=== PATIENT | female | born 1995 | race Caucasian/White ===

== ENCOUNTER → 2019-11-20 10:36 | Outpatient (BNVA) | payer SELFPAY | PROVIDERS: Visit Provider Family Medicine | DX: S60.211A Contusion of right wrist, initial encounter (principal); X58.XXXA Exposure to other specified factors, initial encounter | CPT/HCPCS: 73110 ==

== ENCOUNTER 2020-03-02 21:29 | Emergency (ER) | payer SELFPAY ==
[2020-03-02 22:07] VITALS: BP 130/77; PULSE 71; RESP 16; TEMP 36.9; O2SAT 99; BMI 46.7
[2020-03-02 22:23] LABS: Basophils % 0.4 %; Eosinophils # 0.1 10^3/uL (0.0-0.8); Eosinophils % 1.6 %; Hematocrit 38.4 % (37.0-47.0); Hemoglobin 11.9 g/dL (11.5-15.3); Lymphocytes # 2.6 10^3/uL (0.8-4.8); Lymphocytes % 29.2 %; Mean Corpuscular Hemoglobin 26.7 pg (28.0-34.0); Mean Corpuscular Volume 86.3 fL (81-99); Mean Platelet Volume 9.8 fL (7.4-10.4); Monocytes # 0.7 10^3/uL (0.2-0.9); Monocytes % 7.5 %; Neutrophils # 5.5 10^3/uL (1.8-7.7); Nucleated Red Blood Cells % 0 %; Platelet Count 311 10^3/cmm (130-400); Red Blood Count 4.45 10^6/uL (4.1-5.3); Red Cell Distribution Width 13.2 % (12.1-15.1); White Blood Count 8.9 10^3/uL (4.0-10.0)
--- NOTE | 2020-03-02 22:29 | W.ED.FEMALGU ---
HPI - Female Genitourinary General: Chief complaint: Vaginal Bleeding Stated complaint: large blood clots with period Time Seen by Provider: 03/02/20 22:26 Source: patient Mode of arrival: ambulatory Limitations: no limitations History of Present Illness: HPI Narrative: 24-year-old female who states she has a history of heavy periods and started her period today. She states that she is passed 2 clots and has had abdominal cramping. She denies any worsening or improving factors. She denies any lightheadedness. She does not believe that she is . Associated symptoms: Deny abdominal pain, headache(s) or nausea Date of Last Menstrual Period: 03/02/20 Review of Systems Const: Denies: fever(s), chills, body aches or change in appetite Eyes: Denies: blurry vision or eye discomfort ENMT: Denies: throat pain or dental pain Card: Denies: chest pain Resp: Denies: dyspnea GI: Denies: abdominal pain, nausea, vomiting or diarrhea : Reports: vaginal bleeding Musc: Denies: neck pain or back pain Skin/Breast: Denies: rash Neuro: Denies: headache(s) Psych: Denies: depression Celso/Lymph: Denies: easy bruising All/Imm: Denies: urticaria PFSH ED PFSH: Social History (Updated 11/20/19 @ 10:07 by Jeanie Chatterjee LPN) Smoking and tobacco status: never smoked Alcohol intake: never Female Reproductive History: Date of last menstrual period: 03/02/20 Physical Exam Const: COMMON NORMALS: no acute distress, patient oriented x3 and healthy appearing HENMT: COMMON NORMALS: normocephalic and atraumatic HEAD & SCALP: normocephalic and atraumatic Eye: COMMON NORMALS: Equal, round and reactive pupils present and EOMs intact bilaterally PUPIL: Yes Equal, round and reactive pupils present Neck/C-Spine: COMMON NORMALS: full ROM and supple Chest: COMMONS NORMALS: normal inspection of the chest and normal palpation of entire chest wall Resp: COMMON NORMALS: normal respiratory effort, No retractions, No use of accessory muscles and clear to auscultation bilaterally AUSCULTATION: clear to auscultation bilaterally Cardio: COMMON NORMALS: regular rate, regular rhythm and No murmurs present (Cardio) RATE: regular rate RHYTHM: regular rhythm GI: COMMON NORMALS: Normal to inspection, nondistended, normoactive bowel sounds present, Soft to palpation, non-tender and no masses PALPATION: Yes Soft to palpation Extremity: COMMON NORMALS: normal to inspection and full ROM Neuro: COMMON NORMALS: patient oriented x3, moves all extremities and no focal motor deficits Psych: COMMON NORMALS: mental status grossly normal, Normal thought process present and cooperative THOUGHT PROCESS: Normal thought process present Skin: COMMON NORMALS: no rashes or lesions noted and no wounds GENERAL SKIN EXAM: no rashes or lesions noted Course Vital Signs: Vital signs: Vital Signs Temperature 98.4 F 03/02/20 22:07 Pulse Rate 71 03/02/20 22:07 Respiratory Rate 16 03/02/20 22:07 Blood Pressure 130/77 03/02/20 22:07 Pulse Oximetry 99 03/02/20 22:07 MDM - Female MDM Narrative: Medical decision making narrative: Mary presents here with vaginal bleeding that is likely heavy menstruation. Her hemoglobin here is normal and she is not . She has no pain at this time. Patient is stable for discharge and is to follow-up with her primary care doctor in 3 to 5 days return to the ER if worsening. She understands agrees to plan. Lab Data: Labs: Lab Results 03/02/20 03/02/20 Range/Units 22:00 22:00 WBC 8.9 (4.0-10.0) 10^3/ uL RBC 4.45 (4.1-5.3) 10^6/u L Hgb 11.9 (11.5-15.3) g/dL Hct 38.4 (37.0-47.0) % MCV 86.3 (81-99) fL MCH 26.7 L (28.0-34.0) pg MCHC 31.0 (30.0-36.0) g/dL RDW 13.2 (12.1-15.1) % Plt Count 311 (130-400) 10^3/c mm MPV 9.8 (7.4-10.4) fL Neut % (Auto) 61.0 % Lymph % (Auto) 29.2 % Frio % (Auto) 7.5 % Eos % (Auto) 1.6 % Baso % (Auto) 0.4 % Neut # (Auto) 5.5 (1.8-7.7) 10^3/u L Lymph # (Auto) 2.6 (0.8-4.8) 10^3/u L Frio # (Auto) 0.7 (0.2-0.9) 10^3/u L Eos # (Auto) 0.1 (0.0-0.8) 10^3/u L Baso # (Auto) 0.0 (0.0-0.1) 10^3/u L Nucleated RBC % (a uto) 0 % Nucleated RBCs # 0.0 /100WBC HCG, Qual Negative (Negative) Discharge Plan Discharge Patient Disposition: Home, Self-Care Clinical Impression: Vaginal bleeding Condition: Stable Prescriptions: No Action No Known Home Medications RF: 0 Discharge Orders: Discharge Order (Routine); Ordered 03/02/20 Ordered By: Jackie David Discharge Diet: Advance as tolerated Discharge Activity: Resume usual activity Patient Instructions: Menstruation (ED) Coding Level of Care Code ED Wet And Dry Sugar Bin Operator for Ana Fwd Exam Comprehensive
[2020-03-02 22:50] LABS: HCG, Serum Qual Negative (Negative)
[2020-03-02] MEDS: ketorolac 60 mg/2 mL INJ IM (23:16)
[2020-03-02 23:18] VITALS: BP 142/91; PULSE 63; RESP 16; O2SAT 99
== END 2020-03-02 23:20 | disposition home or self-care (01) ==
PROVIDERS: Emergency Provider Emergency Medicine
DX: N93.9 Abnormal uterine and vaginal bleeding, unspecified (principal)
CPT/HCPCS: 12345; 84703; 85025; 96372; 96374; 99281; 99283; J1885

== ENCOUNTER → 2020-11-25 13:49 | Outpatient (BNVA) | payer SELFPAY | PROVIDERS: Visit Provider Nurse Practitioner | DX: J02.9 Acute pharyngitis, unspecified (principal); J02.0 Streptococcal pharyngitis | CPT/HCPCS: 87880 ==

== ENCOUNTER → 2020-12-24 11:37 | Outpatient (BNVA) | payer SELFPAY | PROVIDERS: Visit Provider Nurse Practitioner | DX: N92.6 Irregular menstruation, unspecified (principal); O24.919 Unspecified diabetes mellitus in pregnancy, unspecified trimester | CPT/HCPCS: 81025; 85025 ==

== ENCOUNTER → 2020-12-30 13:35 | Outpatient (BNVA) | payer MEDICAID, SELFPAY | PROVIDERS: Visit Provider Obstetrics & Gynecology | DX: N92.6 Irregular menstruation, unspecified (principal); O24.919 Unspecified diabetes mellitus in pregnancy, unspecified trimester | CPT/HCPCS: 83036; 83525; 84443 ==

== ENCOUNTER → 2021-01-09 08:40 | Outpatient (BNVA) | payer MEDICAID, SELFPAY | PROVIDERS: Visit Provider Obstetrics & Gynecology | DX: N92.6 Irregular menstruation, unspecified (principal); N83.202 Unspecified ovarian cyst, left side | CPT/HCPCS: 76830 ==

== ENCOUNTER → 2021-06-17 12:13 | Outpatient (BNVA) | payer MEDICAID, SELFPAY | PROVIDERS: Visit Provider Nurse Practitioner Family | DX: Z20.822 Contact with and (suspected) exposure to COVID-19 (principal); J06.9 Acute upper respiratory infection, unspecified | CPT/HCPCS: 87426; 87635 ==

== ENCOUNTER → 2021-08-04 09:30 | Outpatient (BNVA) | payer MEDICAID, SELFPAY | PROVIDERS: Visit Provider Obstetrics & Gynecology | DX: Z30.9 Encounter for contraceptive management, unspecified (principal) | CPT/HCPCS: 81025 ==

== ENCOUNTER 2022-04-21 06:42 | Outpatient (CLI) | payer MEDICAID, SELFPAY ==
--- NOTE | 2022-04-21 07:00 | US_ITS ---
WS: [id number] TRANSABDOMINAL PELVIC AND TRANSVAGINAL PELVIC ULTRASOUND HISTORY: N93.9 - Abnormal uterine and vaginal bleeding, unspecified COMPARISON: 01/09/2021 Uterus: 7.8 cm x 4.8 cm x 4.2 cm. Normal size anteverted uterus. No fibroid or mass. Endometrium: 0.5 cm. Normal size and homogeneity. Normal vascularity. IUD is present but incompletely visualized. It does appear to be in normal position. Right ovary: 2.9 cm x 2.2 cm x 1.7 cm. Normal size and vascularity. No mass. Small follicles. Largest follicle measures 1.4 x 1.2 x 1.5 cm. Left ovary: 2.4 cm x 1.6 cm x 1.5 cm. Normal size and vascularity. No mass. Small follicles. No free fluid. US/US pelvic with transvaginal IMPRESSION: 1. IUD in satisfactory position. 2. No ovarian mass or cyst.
== END 2022-04-21 06:43 | disposition home or self-care (01) ==
PROVIDERS: Visit Provider Obstetrics & Gynecology
DX: N93.9 Abnormal uterine and vaginal bleeding, unspecified (principal); Z97.5 Presence of (intrauterine) contraceptive device
CPT/HCPCS: 76830; 76856

== ENCOUNTER → 2022-07-30 11:16 | Outpatient (BNVA) | payer MEDICAID, SELFPAY | PROVIDERS: Visit Provider Obstetrics & Gynecology | DX: N92.1 Excessive and frequent menstruation with irregular cycle (principal); Z97.5 Presence of (intrauterine) contraceptive device | CPT/HCPCS: 87070; 87205 ==

== ENCOUNTER 2022-10-23 14:11 | Emergency (ER) | payer MEDICAID, SELFPAY ==
--- NOTE | 2022-10-23 14:15 | XR_ITS ---
WS: [id number] Exam: XR foot LT min 3V* [id number] Date/Time of Exam: 10/23/2022 2:15 PM Reason For Exam: injury Findings: The foot was examined in multiple views and reveals no fractures or displacements of bone. No bony a nomalies are noted. The bony elements are in adequate alignment. The joint spaces are smooth and eq uidistant. XR/XR foot LT min 3V* [id number] IMPRESSION: Negative left foot.
[2022-10-23 14:23] VITALS: BP 150/87; PULSE 63; RESP 16; TEMP 36.6; O2SAT 98
[2022-10-23 17:04] VITALS: BP 148/97; PULSE 70; RESP 18; TEMP 36.7
--- NOTE | 2022-10-23 17:05 | ED_ITS ---
HPI - Extremity Problem General: Chief complaint: Extremity Injury, Lower Stated complaint: left foot injury Time Seen by Provider: 10/23/22 17:04 History of Present Illness: 27-year-old female comes in today with injury to the left foot. Patient reports that she dropped the corner of a bookshelf onto her left foot when moving it. Patient has pain and tenderness with walking. Patient appears nontoxic. Review of Systems Musc: Reports: extremity pain [facility] ED PFSH: Medical History History of strep pharyngitis Surgical History History of ankle surgery Family History Father Heart disease Denies family history of Colon cancer Ovarian cancer Diabetes Hypercholesteremia Breast cancer Hypertension Uterine cancer Thyroid disease Stroke Social History Smoking and tobacco status: never smoked Female Reproductive History: Date of last menstrual period: 03/02/20 Physical Exam Const: COMMON NORMALS: alert HENMT: COMMON NORMALS: normocephalic HEAD & SCALP: normocephalic Neck/C-Spine: COMMON NORMALS: full ROM Resp: COMMON NORMALS: normal respiratory effort Cardio: COMMON NORMALS: regular rate RATE: regular rate Back/Pelvis: COMMON NORMALS: thoracic and lumbar spine normal to inspection Extremity: LEFT LOWER EXTREMITY: Yes foot & digits (Dorsal foot has a superficial abrasion with some swelling and ecchymosis) Left foot and digits: Yes inspection, Yes palpation and Yes ROM Neuro: SENSORIUM/ORIENTATION: Yes alert Skin: TRAUMA: abrasion (Small superficial abrasion dorsal left foot) Course Vital Signs: Vital signs: Vital Signs Temperature 98.0 F 10/23/22 17:04 Pulse Rate 70 10/23/22 17:04 Respiratory Rate 18 10/23/22 17:04 Blood Pressure 148/97 10/23/22 17:04 Pulse Oximetry 98 10/23/22 14:23 Oxygen Delivery Me thod 10/23/22 17:04 MDM - Extremity (Nontraumatic) Medical Decision Making Patient comes in today for injury to left foot. On exam we note a small superficial abrasion with some surrounding swelling and mild ecchymosis to the dorsal of the left foot. Differential diagnosis includes fracture, sprain, contusion. X-ray notes no fracture. Believe patient probably has a contusion recommend activity as tolerated and ice packs. Patient reported understanding and agreed to plan. Lab Data Radiology Impressions Foot X-Ray 10/23/22 14:15 IMPRESSION: Negative left foot. Discharge Plan Discharge Patient Disposition: Home Clinical Impression: Contusion of foot, left Qualifiers: Encounter type: initial encounter Qualified Code(s): S90.32XA - Contusion of left foot, initial encounter Condition: Stable Prescriptions: No Action amoxicillin 875 mg tablet 875 mg PO BID Qty: 20 0RF Xulane 150-35 mcg/24 hr patch weekly 1 patch transdermal Q7D Qty: 3 4RF Rx Instructions: apply once weekly for 3 weeks of a 4-week cycle Discharge Orders: Discharge ED (Routine); Ordered 10/23/22 Ordered By: Tyler Ramos Patient Instructions: Foot Contusion (ED) Activity Restrictions/Additional Instructions: Home and rest. Activity as tolerated. Ice as needed for pain. Use acetaminophen and ibuprofen for further pain. Follow-up with primary care as needed. Return to ED for new concerns. Coding Level of Care Code ED Director Call Center Sales for Ana Zamora
[2022-10-23 17:19] VITALS: BP 148/97; PULSE 70; RESP 18; TEMP 36.7
== END 2022-10-23 17:24 | disposition home or self-care (01) ==
PROVIDERS: Emergency Provider Nurse Practitioner Family
DX: S90.32XA Contusion of left foot, initial encounter (principal); W20.8XXA Other cause of strike by thrown, projected or falling object, initial encounter
CPT/HCPCS: 73630; 99283

== ENCOUNTER 2022-11-08 10:02 | Emergency (ER) | payer MEDICAID, SELFPAY ==
[2022-11-08 10:15] VITALS: BMI 48.5
[2022-11-08 10:19] VITALS: BP 149/100; PULSE 73; RESP 18; TEMP 36.7; O2SAT 95
--- NOTE | 2022-11-08 10:22 | XRR_ITS ---
PROCEDURE INFORMATION: Exam: XR Right Knee Exam date and time: 11/08/2022 10:49 AM Age: 27 years old Clinical indication: Right knee pain TECHNIQUE: Imaging protocol: Radiologic exam of the Right knee. Views: 3 views. COMPARISON: No relevant prior studies available. FINDINGS: Bones/joints: Large knee joint effusion. No significant degenerative changes. No acute fracture is identified. No chondrocalcinosis is seen. Soft tissues: The extensor mechanism is overall intact. XR/XR knee RT 3V* [id number] IMPRESSION: 1. No acute fracture is identified. 2. Large knee joint effusion. 3. Consider MRI to further assess if clinically warranted.
--- NOTE | 2022-11-08 10:22 | W.ED.EXTPRO ---
HPI - Extremity Problem General: Chief complaint: Extremity Injury, Lower Stated complaint: Fall, R leg/Knee pain Time Seen by Provider: 11/08/22 10:03 Source: patient Mode of arrival: ambulatory Limitations: no limitations History of Present Illness: 27-year-old female presents the ER today for right knee pain that began this morning. Patient reports she was walking on a flat surface when she felt a sudden pop in the right leg. Patient reports that almost took her to the ground immediately. She reports she has been having severe pain since with weightbearing. She denies any swelling. Denies any prior injury to that knee however has had right ankle surgery. Patient reports there is severe pain in the front lateral aspect of the knee with ambulation. Review of Systems General: Reports: 10 or more systems reviewed and unremarkable except in HPI and below PFSH ED PFSH: Medical History History of strep pharyngitis Surgical History History of ankle surgery Family History Father Heart disease Denies family history of Colon cancer Ovarian cancer Diabetes Hypercholesteremia Breast cancer Hypertension Uterine cancer Thyroid disease Stroke Social History Smoking and tobacco status: never smoked Female Reproductive History: Date of last menstrual period: 03/02/20 Physical Exam Const: COMMON NORMALS: no acute distress, patient oriented x3, no limitations, healthy appearing, alert and well nourished; negative for average body habitus (Obese) Resp: COMMON NORMALS: normal respiratory effort EFFORT & INSPECTION: Yes able to speak in complete sentences Cardio: COMMON NORMALS: regular rate and regular rhythm RATE: regular rate RHYTHM: regular rhythm Extremity: NARRATIVE EXTREMITY EXAM: Patient is mildly tender to palpation in the superior lateral aspect of the tibia/fibula/lower part of the knee. No obvious swelling. Ligments appear stable with anterior and posterior drawer. Neuro: COMMON NORMALS: patient oriented x3 SENSORIUM/ORIENTATION: Yes alert Psych: COMMON NORMALS: mental status grossly normal, Normal thought process present and cooperative THOUGHT PROCESS: Normal thought process present Skin: COMMON NORMALS: no rashes or lesions noted and no wounds GENERAL SKIN EXAM: no rashes or lesions noted Course ED course: Patient presents with right knee pain that occurred while walking on a flat surface this morning. No obvious swelling or abnormalities noted on exam other than some mild tenderness. We will get an x-ray at this time. Vital Signs: Vital signs: Vital Signs Temperature 98.0 F 11/08/22 10:19 Pulse Rate 73 11/08/22 10:19 Respiratory Rate 18 11/08/22 10:19 Blood Pressure 149/100 11/08/22 10:19 Pulse Oximetry 95 11/08/22 10:19 Oxygen Delivery Me thod 11/08/22 10:19 MDM - Extremity (Nontraumatic) Medical Decision Making X-ray indicates no acute fracture however large knee joint effusion is noted. Patient reports no prior injury or problems with this knee so I am suspicious of a tendon or ligament injury. We will place patient in a knee brace and also on crutches. I recommended she stay off of her knee until follow-up with Ortho. A case management referral to Ortho has been placed. We will also send patient home with diclofenac to take for the next 10 days. Rest, ice, elevation recommended. Return to the ER with any new or worsening symptoms. Patient verbalized understanding and was in agreement with the treatment plan. Lab Data Radiology Impressions Knee X-Ray 11/08/22 10:22 IMPRESSION: 1. No acute fracture is identified. 2. Large knee joint effusion. 3. Consider MRI to further assess if clinically warranted. Critical Care Time Critical Care Time: Critical Care Time: No Discharge Plan Discharge Patient Disposition: Home Clinical Impression: Acute pain of right knee Condition: Stable Prescriptions: New diclofenac sodium 50 mg tablet,delayed release (DR/EC) 50 mg PO Q12H PRN (Reason: pain) 10 Days Qty: 20 0RF No Action amoxicillin 875 mg tablet 875 mg PO BID Qty: 20 0RF Xulane 150-35 mcg/24 hr patch weekly 1 patch transdermal Q7D Qty: 3 4RF Rx Instructions: apply once weekly for 3 weeks of a 4-week cycle Discharge Orders: Discharge ED (Routine); Ordered 11/08/22 Ordered By: Nicci Molina Discharge Diet: Usual diet Discharge Activity: Limit activity as instructed Patient Instructions: Opioid Safety, Pain Management Activity Restrictions/Additional Instructions: Wear knee brace as placed in the ER. Use crutches as discussed. Rest, ice, elevation recommended. Take diclofenac as prescribed. Ice 20 minutes on and 20 minutes off 3-4 times daily. Follow-up with Ortho as discussed. Return to the ER with new or worsening symptoms. Coding Level of Care Code ED Laborer [employer] for Ana Zamora
--- NOTE | 2022-11-08 11:47 | PC.NURSE ---
PT HAD RIGHT KNEE IMMOBILIZER PLACED PER PROVIDER PABLO VO WITH CRUTCHES AND EDUCATION WITH USE. PT RETURNED DEMONSTRATION. PT HAS A +2 RIGHT PEDAL PULSE WITH CAP REFILL LESS THAN 3 SECONDS. PT DENIES ANY LOSS OF SENSATION OR FUNCTION.
[2022-11-08 11:50] VITALS: BP 152/85; PULSE 86; RESP 16; O2SAT 99
--- NOTE | 2022-11-09 09:19 | DCPLANNER ---
Addendum entered by Anabella Peck 11/11/22 12:56: Patient had a follow up appointment scheduled with ortho for 11.09.[address] Reza at ortho - patient did attend appointment. Original Note: Case manger had message to schedule a follow up appointment for patient with ortho. gas manager sent patients information to the front office staff at ortho. Patients information will be printed and reviewed. Clinic will call patient with appointment information.
== END 2022-11-08 11:51 | disposition home or self-care (01) ==
PROVIDERS: Emergency Provider Physician Assistant
DX: M25.561 Pain in right knee (principal)
CPT/HCPCS: 29530; 73562; 99283; E0114

== ENCOUNTER → 2022-11-09 09:39 | Outpatient (BNVA) | payer MEDICAID, SELFPAY | PROVIDERS: Visit Provider Specialist | DX: S89.91XA Unspecified injury of right lower leg, initial encounter (principal); S83.206A Unspecified tear of unspecified meniscus, current injury, right knee, initial encounter; X58.XXXA Exposure to other specified factors, initial encounter; E66.01 Morbid (severe) obesity due to excess calories; Z68.42 Body mass index [BMI] 45.0-49.9, adult | CPT/HCPCS: 73560; 73565 ==

== ENCOUNTER 2022-11-09 14:42 | Outpatient (CLI) | payer MEDICAID, SELFPAY | END 2022-11-09 14:43 | disposition home or self-care (01) | LOC: SPT 14:43 | PROVIDERS: Visit Provider Specialist | DX: Z46.89 Encounter for fitting and adjustment of other specified devices (principal); M25.561 Pain in right knee | CPT/HCPCS: 97760; L1812 ==

== ENCOUNTER → 2022-11-12 11:00 | Outpatient (BNVA) | payer MEDICAID, SELFPAY | PROVIDERS: Visit Provider Obstetrics & Gynecology | DX: Z01.419 Encounter for gynecological examination (general) (routine) without abnormal findings (principal); E66.9 Obesity, unspecified | CPT/HCPCS: 83036; 83525; 84443; 87624 ==

== ENCOUNTER 2022-12-09 07:08 | Outpatient (CLI) | payer MEDICAID, SELFPAY ==
--- NOTE | 2022-12-09 07:15 | MR_ITS ---
WS: [id number] MRI RIGHT KNEE NONCONTRAST TECHNIQUE: Axial PD, coronal PD fat sat, coronal PD, sagittal PD, and sagittal PD fat-sat images obta ined. CLINICAL INFORMATION: Positive Bharath's sign COMPARISON: None. FINDINGS: Distal quadriceps and patella tendons are intact. ACL is nonvisualized compatible with high-grade tea r. No normal fibers visualized. Normal PCL. Small joint effusion. Mild chronic thinning of the medial and lateral meniscus. No acute appearing me niscal tears. Medial and lateral collateral ligaments appear intact. Normal popliteus. Normal patella . Normal patella cartilage. No subchondral edema. Normal fibula head. MR/MR knee RT wo con* [id number] IMPRESSION: 1. High-grade complete tear of the ACL. No normal fibers visualized. 2. Normal PCL. 3. No acute appearing meniscal tears. 4. Small suprapatellar effusion. 5. Medial and lateral collateral ligaments appear intact. 6. No other acute findings. Outbridge grading:
== END 2022-12-09 07:09 | disposition home or self-care (01) ==
LOC: RAD 07:10
PROVIDERS: Visit Provider Specialist
DX: S83.511A Sprain of anterior cruciate ligament of right knee, initial encounter (principal); X58.XXXA Exposure to other specified factors, initial encounter; M25.461 Effusion, right knee
CPT/HCPCS: 73721

== ENCOUNTER 2023-02-04 05:37 | Day surgery (SDC) | payer MEDICAID, SELFPAY ==
[2023-02-03 09:19] VITALS: BMI 49.2
[2023-02-04] VITALS (14 sets, daily range): BP systolic 148–190; BP diastolic 66–108; PULSE 68–97; RESP 16–18; TEMP 36.1–36.6; O2SAT 90–99
[2023-02-04] MEDS: sodium chloride 0.9% 1,000 ML 30 ML IV (06:15)
[2023-02-04] MEDS: oxyCODONE 20 mg ER (12 HR) Tablet PO (06:16)
[2023-02-04] MEDS: gabapentin 300 mg Capsule PO (06:16)
[2023-02-04] MEDS: acetaminophen 500 mg Tablet 1000 MG PO (06:17)
[2023-02-04] MEDS: CELEcoxib 200 mg Capsule 400 MG PO (06:17)
--- NOTE | 2023-02-04 07:01 | W.PM.OPSFHP ---
Same Day Surgery H&P Indication for Procedure/HPI DATE OF PROCEDURE: February 04, 2023 CHIEF COMPLAINT/INDICATIONFOR SURGICAL PROCEDURE: Anterior cruciate ligament deficiency right knee PREOP DIAGNOSIS: Anterior cruciate ligament tear right knee, hamstring autograft PLANNED PROCEDURE: Operation Date: 02/04/23 07:00 Proposed Procedures p arthroscopic right ACL reconstruction/ 99158,S83.511A(Right) - Jerald Wetzel MD The patient is a 27-year-old who injured her right knee on 10/30/2022 when her knee popped and gave way with immediate pain and swelling she has had continued pain and instability. An MRI scan on 12/09/2022 revealed a complete tear of her anterior cruciate ligament. She is here for elective anterior cruciate ligament reconstruction Medications/Allergies* Home Medications Medication Instructions Recorded Confirmed Type No Known Home Medications 12/15/22 02/03/23 History Allergies/Adverse Reactions Allergy/AdvReac Type Severity Reaction Status Date / Time No Known Allergies Allergy Verified 12/15/22 08:25 Current Medications: Generic Name Dose Route Start Last Admin Trade Name Freq PRN Reason Stop Dose Admin Sodium Chloride 1,000 mls @ 30 mls/hr 02/04/23 06:00 02/04/23 06:15 Sodium Chloride 0.9% IV 02/05/23 05:59 30 mls/hr .Q24H JUAN Administration Pertinent History/Comorbid Conditions* Medical History (Updated 11/16/22 @ 00:14 by KARLA Chandler) History of strep pharyngitis Surgical History (Updated 08/04/21 @ 13:40 by Bindu Dewitt MD) History of ankle surgery Family History (Updated 08/04/21 @ 09:34 by Stella Frank) Heart disease Father Denies family history of Colon cancer Ovarian cancer Diabetes Hypercholesteremia Breast cancer Hypertension Uterine cancer Thyroid disease Stroke Social History Smoking and tobacco status: never smoked Substance/Drug Use: never Pertinent Exam Findings alert, oriented x 3, clear to auscultation bilaterally, regular rate & rhythm and operative site marked KNEE [right] No tenderness No effusion RANGE OF MOTION: ? ? ? EXAMINED LIMB ? Extention: Full extent ? Flexion: 130 degrees Patella tracks well She has a larger leg but appears to have a soft endpoint on Swetha exam of the right knee compared to the left He will not relax for pivot shift. Negative posterior drawer bilaterally No posterior lateral instability MOTOR: Strong quadriceps hamstrings tibialis anterior and extensor houses longus strength SENSATION: Intact to light touch Recommendations Surgery/Procedure today Coding Level of Care Code Acute Code for Chg Fwd Diagnoses
[2023-02-04] MEDS: ceFAZolin 2,000 MG in sodium chloride 0.9% (plus) 50 ML 100 MG IV (07:05)
[2023-02-04] MEDS: morphine 4 mg/mL SDV 1 mL 8 MG XX (07:28)
--- NOTE | 2023-02-04 07:57 | ANES.PREANE2 ---
Pre-Anesthetic Assessment Height/Weight: Height 1.6 m Weight 126.099 kg Temp Pulse Resp BP Pulse Ox O2 Del Method 97.2 F L 86 16 160/99 96 Room Air 02/04/23 05:59 02/04/23 05:59 02/04/23 05:59 02/04/23 05:59 02/04/23 05:59 02/04/23 06:05 Preop Diagnosis: Anterior cruciate ligament tear right knee, hamstring autograft Operation Date: 02/04/23 07:00 Proposed Procedures p arthroscopic right ACL reconstruction/ 36251,S83.511A(Right) - Jerald Wetzel MD Familial anesthetic complications: none Was Beta Shanda taken within 24 hours: N/A Was Clonidine taken within 24 hours: N/A Last intake: Intake Last Liquid Date 02/03/23 Last Liquid Time 22:00 Last Solid Date 02/03/23 Last Solid Time 21:00 Social No alcohol and No tobacco Exam alert, oriented x 3, clear to auscultation bilaterally and regular rate & rhythm Airway Submandibular: within normal limits Cervical ROM: within normal limits Mallampati: Class II Dentition: full Metabolic Morbid Obesity Anesthetic Plan ASA status: 2 Anesthesia: General and Regional (specify below) (right adductor blk) Medications/Allergies Home Medications Medication Instructions Recorded Confirmed Last Taken Type No Known Home Medications 12/15/22 02/03/23 Unknown History Allergies Allergy/AdvReac Type Severity Reaction Status Date / Time No Known Allergies Allergy Verified 12/15/22 08:25 Current Medications Generic Name Dose Route Start Last Admin Trade Name Freq PRN Reason Stop Dose Admin Bupivacaine HCl 30 ml 02/04/23 07:51 02/04/23 07:28 Bupivacaine 0.5% Inj 30 Ml INJECTION 02/04/23 07:52 30 ml ONCE ONE Administration Gentamicin Sulfate 80 mg 02/04/23 07:51 02/04/23 07:53 Gentamicin 40 Mg/Ml Sdv 2 Ml IRRIGATION 02/04/23 07:52 80 mg ONCE ONE Administration Sodium Chloride 1,000 mls @ 30 mls/hr 02/04/23 06:00 02/04/23 06:15 Sodium Chloride 0.9% IV 02/05/23 05:59 30 mls/hr .Q24H JUAN Administration Morphine Sulfate 8 mg 02/04/23 07:50 02/04/23 07:28 Morphine 4 Mg/Ml Sdv 1 Ml XX 02/04/23 07:51 8 mg ONCE ONE Administration PFS Anesthesia Medical History History of strep pharyngitis Surgical History History of ankle surgery Family History Father Heart disease Denies family history of Colon cancer Ovarian cancer Diabetes Hypercholesteremia Breast cancer Hypertension Uterine cancer Thyroid disease Stroke Social History Smoking and tobacco status: never smoked Substance/Drug Use: never Female Reproductive History Date of last menstrual period: 01/11/23 Data Anesthesia Cardiac Studies: No Data to Display Anesthesia Procedures Nerve Block Nerve Block 1: Main Anesthesia: general anesthesia Time Out Performed: Yes Consent: requested by attending/covering physician, from patient, risks and benefits reviewed and patient agrees to proceed Nerve block location: adductor canal (right) Anesthesia monitors applied: pulse oximetry, EKG, BP cuff and oxygen Nerve block position: supine Anesthetic Used: ropivicaine 0.5% Amount of anesthesia used (mL): 20 Ultrasound used to: recognize landmarks Nerve Stimulator Used?: No Interscalene/Femoral BLK: 4 stimuplex 21 g needle used for position and inplane approach Injection: neg aspiration of heme Patient Tolerated Procedure: well Complications: none
--- NOTE | 2023-02-04 09:23 | P.OP_ITS ---
Operative Report Date of procedure: February 04, 2023 Pre-op diagnosis: Preop Diagnosis Anterior cruciate ligament tear right knee, hamstring autograft Post-op diagnosis: same Procedure done: Right anterior cruciate ligament reconstruction Implants: [employer] 15 mm closed loop Endobutton, 9x25 Biosure screw, Biosure Sync s leeve Pathology: none sent Surgeon: Jerald Wetzel Anesthesia: General and Nerve Block (Adductor canal block) Estimated blood loss (mL): 10 Findings: Complete disruption of the anterior cruciate ligament from its femoral origin. Her menisci and cartilaginous surfaces were healthy Condition: stable Disposition: PACU Procedure: the patientas taken to the operating room and given a general anesthesia. The extremity was prepped and draped in the usual fashion. The knee was infiltrated with 30 cc of 0.5% Marcaine and 8 mg of morphine. Attention was then paid to the anterior cruciate ligament. The diagnostic portion of the arthroscopy was performed. The menisci and chondral surfaces were healthy. The old ACL sample or removed with the incisor shaver and Dick [employer] Nephew Werewolf cautery. Utilizing an incisor shaver small amount of lateral wall was resected allowing visualization of the posterior lateral intercondylar notch. A 3 cm long incisi on was then made over the medial tibial plateau and dissection carried down with blunt scissors identifying a well-defined semi-tendinosis and gracilis graft. The 2 grafts were freed off their insertion on the tibia and fixed with a Dick [employer] Nephew Ultrabraid suture. Using the closed ended tendon stripper to grafts were harvested. On the back table with her freed of muscle and the free ends fixed with the Ultrabraid suture. They were pretensioned on the back table. They were measured and fit snugly through a high mm tunnel. Using the anatomic femoral footprint guide, a guidepin was driven up from the 10:30 position exiting superior and lateral femur. Tunnel depth was measured at 36 mm. The Endobutton reamer was passed over the guide pin confirming the length of tunnel. A 9 mm reamer was then passed to a depth of 30 mm. The Dick [employer] Nephew ProTrac guide was used to pass a guidepin from the medial tibia exiting the tibial footprint. A 9.5mm reamer was passed over the guidepin exiting the tibial footprint of the anterior cruciate ligament. On the back table, the 2 grafts were doubled through a 15 mm closed loop Endobutton. This allowed 21 mm of tendon to be buried in the femur and allowed more than sufficient room to flip the Endobutton. The grafts were shuttled from the tibia through the femur using an ultra braid suture. The Endobutton was felt to flip on the lateral cortex and secured with tension on the sutures to the tibia. A [employer]hew Biosure Sync sleeve was placed and was secured with a 9 x 25 mm Biosure PK screw. The knee and medial wounds were irrigated with saline. The sartorius fascia was closed with 2-0 Vicryl. Deep tissues were closed with 2-0 Vicryl. The tibial wound was closed with a running 3-0 Prolene. Portals were closed with 3-0 Pr olene. Steri-Strips were applied over the tibial incision. Sterile dressings were applied. The patient was placed in a hinged knee brace locked in full extension. They were taken to recovery room in stable condition.
[2023-02-04] MEDS: ondansetron 2 mg/ML SDV 2 mL 4 MG IVP (09:38)
[2023-02-04] MEDS: HYDROmorphone 1 mg/mL INJ 1 mL 0.5 MG IVP (09:40)
--- NOTE | 2023-02-04 09:41 | P.PCN_ITS ---
PACU note Narrative: VSS, Good respiratory effort, report to NATIONAL SALES DIRECTOR Exam: awake
--- NOTE | 2023-02-04 09:41 | PM.PACU ---
PACU note Narrative: VSS, Good respiratory effort, report to DIE ENGRAVER Exam: awake
[2023-02-04] MEDS: diphenhydrAMINE 50 mg/mL SDV 1mL 12.5 MG IVP (09:47)
[2023-02-04] MEDS: ketorolac 30 mg/mL INJ IVP (10:00)
[2023-02-04] MEDS: hetastarch 30 GM/500 ML PREMIX IV (10:09)
[2023-02-04] MEDS: oxyCODONE 5 mg IR Tab/Cap PO (11:21)
--- NOTE | 2023-02-04 16:10 | ANE.PACU2 ---
Inpatient post-anesthesia follow up: Airway intact: Yes Vital signs: Temperature 97.9 F Pulse Rate 79 Respiratory Rate 16 Blood Pressure 148/100 Pulse Oximetry 95 Oxygen Delivery Me thod Room Air Oxygen Flow Rate Fraction of Inspir ed Oxygen Hydration adequate: Yes Nausea and vomiting: Yes Pain level: 3 Mental status: Baseline
== END 2023-02-04 11:35 | disposition home or self-care (01) ==
PROVIDERS: PCP Family Medicine; Visit Provider Orthopaedic Surgery
PROC: (CPT 27407; principal; 2023-02-04 07:00)
DX: S83.511A Sprain of anterior cruciate ligament of right knee, initial encounter (principal); X58.XXXA Exposure to other specified factors, initial encounter; E66.01 Morbid (severe) obesity due to excess calories; Z68.42 Body mass index [BMI] 45.0-49.9, adult
CPT/HCPCS: 29888; 81025; C1713; J0690; J1100; J1170; J1200; J1580; J1885; J2270; J2405; J2704; J2795; J3010; J3490; J7030; L1832

== ENCOUNTER → 2023-06-29 10:22 | Outpatient (BNVA) | payer MEDICAID, SELFPAY | PROVIDERS: PCP Family Medicine; Visit Provider Student in an Organized Health Care Education/Training Program | DX: Z98.890 Other specified postprocedural states (principal) | CPT/HCPCS: 73560; 73565 ==

== ENCOUNTER → 2023-11-30 07:50 | Outpatient (BNVA) | payer MEDICAID, SELFPAY | PROVIDERS: PCP Nurse Practitioner Family; Visit Provider Nurse Practitioner Family | DX: E66.01 Morbid (severe) obesity due to excess calories (principal); Z68.42 Body mass index [BMI] 45.0-49.9, adult | CPT/HCPCS: 80053; 80061; 83036; 84443; 85025 ==

== ENCOUNTER → 2024-08-11 11:14 | Outpatient (BNVA) | payer MEDICAID, SELFPAY | PROVIDERS: PCP Nurse Practitioner Family | DX: J02.9 Acute pharyngitis, unspecified (principal) | CPT/HCPCS: 87880 ==

== ENCOUNTER 2025-01-13 10:14 | Emergency (ER) | payer MEDICAID, SELFPAY ==
--- NOTE | 2025-01-13 10:26 | XRR_ITS ---
PROCEDURE INFORMATION: Exam: XR Left Shoulder Exam date and time: 01/13/2025 10:30 AM Age: 29 years old Clinical indication: Shoulder; Left; Pain x3 weeks, no related injury TECHNIQUE: Imaging protocol: Radiologic exam of the left shoulder. Views: 2 or more views. COMPARISON: No relevant prior studies available. FINDINGS: Bones/joints: Lobulated calcifications adjacent to the greater tuberosity of the proximal humerus. No definitive acute fracture or dislocation. Soft tissues: No significant soft tissue swelling. XR/XR shoulder LT min 2V* [id number] IMPRESSION: Findings likely compatible with calcific tendinosis/tendinitis at the greater tuberosity of the proximal humerus. No definitive acute fracture or dislocation. Follow-up imaging can be obtained in 7-14 days if clinical concern for fracture persists.
[2025-01-13 10:28] VITALS: BP 169/108; PULSE 75; RESP 18; TEMP 36.6; O2SAT 99; BMI 54.9
[2025-01-13 10:32] VITALS: BP 164/114; O2SAT 99
--- NOTE | 2025-01-13 10:40 | ED_ITS ---
HPI - Extremity Problem General: Chief complaint: Extremity Problem,Nontraumatic Stated complaint: lft shoulder pain Time Seen by Provider: 01/13/25 10:26 History of Present Illness: 29-year-old female presents to the emerg ency room with complaint of left shoulder pain bleeding worse last 3 weeks. She does not recall any particular injury or fall or any exertional activities. Progressively become more limiting to her usual activities no previous injuries to the shoulder. No previous surgeries to the left shoulder. No other accompanying signs or symptoms. Associated symptoms: Deny chest pain or fever(s) Related Data Previous Rx's ?Medication ?Instructions ?Recorded amoxicillin 500 mg capsule 500 mg PO BID 10 days #20 c aps 08/11/24 sulfamethoxazole 800 1 tab PO BID 10 days #20 tab s 08/16/24 mg-trimethoprim 160 mg tablet diclofenac sodium 75 mg 75 mg PO Q12H PRN pain #20 t abs 01/13/25 tablet,delayed release Allergies Allergy/AdvReac Type Severity Reaction Status Date / Time No Known Allergies Allergy Verified 08/16/24 11:05 Review of Systems Const: Denies: fever(s) or chills Card: Denies: chest pain Resp: Denies: dyspnea Musc: Denies: neck pain or back pain PFSH ED PFSH: Medical History History of strep pharyngitis Surgical History History of ankle surgery Family History Father Heart disease Denies family history of Colon cancer Ovarian cancer Diabetes Hypercholesteremia Breast cancer Hypertension Uterine cancer Thyroid disease Stroke Social History Smoking and tobacco/nicotine status: unknown if used tobacco/nicotine Substance/Drug Use: never Physical Exam Extremity: OTHER: Examination of the left shoulder patient has exquisite discomfort with any at tempted range of motion positive impingement sign pain with abduction even to 30 degrees. Neurovascularly intact radial and ulnar pulses are normal Course Vital Signs: Vital signs: Vital Signs Temperature 97.8 F 01/13/25 10:28 Pulse Rate 73 01/13/25 11:07 Respiratory Rate 18 01/13/25 10:28 Blood Pressure 161/98 01/13/25 11:07 Pulse Oximetry 98 01/13/25 11:07 Oxygen Delivery Me thod Room Air 01/13/25 10:32 MDM - Extremity (Nontraumatic) Medical Decision Making X-ray shows calcific tendinitis placed patient in a sling anti-inflammatories have her follow-up with orthopedics as an outpatient. Lab Data Radiology Impressions Shoulder X-Ray 01/13/25 10:26 IMPRESSION: Findings likely compatible with calcific tendinosis/tendinitis at the greater tuberosity of the proximal humerus. No definitive acute fracture or dislocation. Follow-up imaging can be obtained in 7-14 days if clinical concern for fracture persists. All radiology interpretation(s) finalized by discharge Discharge Plan Discharge Patient Disposition: Home Clinical Impression: Calcific tendinitis of left shoulder region Condition: Stable Prescriptions: New diclofenac sodium 75 mg tablet,delayed release (DR/EC) 75 mg PO Q12H PRN (Reason: pain) Qty: 20 0RF No Action sulfamethoxazole-trimethoprim 800-160 mg tablet 1 tab PO BID 10 Days Qty: 20 0RF amoxicillin 500 mg capsule 500 mg PO BID 10 Days Qty: 20 0RF Discharge Orders: Discharge ED (Routine); Ordered 01/13/25 Ordered By: Nathanael Bhatt Discharge Diet: Usual diet Discharge Activity: Limit activity as instructed Patient Instructions: Opioid Safety, Pain Management Activity Restrictions/Additional Instructions: Thank you for choosing [facility] [place] for your healthcare needs today. It is very important that you follow up as instructed or that you return to the Emergency Department should you have concerns or if your condition changes or worsens in any way. You are seen in the emergency room with complaint of left shoulder pain. Pain is very musculoskeletal in nature. There is no acute fracture on your x-ray however there are some calcifications within the tendons around the shoulder. This is likely what is causing your discomfort. Will have you use a arm sling for comfort. Given a prescription for anti-inflammatories case management will make arrangements for you to follow-up with orthopedics Print Language: German Coding Level of Care Code ED Hyperion Analyst for Ana Zamora
[2025-01-13 11:07] VITALS: BP 161/98; PULSE 73; O2SAT 98
--- NOTE | 2025-01-15 07:19 | DCPLANNER ---
messaged ortho for er f/u
== END 2025-01-13 11:08 | disposition home or self-care (01) ==
PROVIDERS: Emergency Provider Family Medicine
DX: M75.32 Calcific tendinitis of left shoulder (principal)
CPT/HCPCS: 73030; 99283

== ENCOUNTER → 2025-01-17 08:28 | Outpatient (BNVA) | payer MEDICAID, SELFPAY | PROVIDERS: PCP Clinical Nurse Specialist Acute Care; Visit Provider Physician Assistant | DX: M75.32 Calcific tendinitis of left shoulder (principal); M75.42 Impingement syndrome of left shoulder | CPT/HCPCS: 73030 ==

== ENCOUNTER 2025-01-29 07:50 | Emergency (ER) | payer MEDICAID, SELFPAY ==
--- NOTE | 2025-01-29 08:07 | ED_ITS ---
HPI - General Adult 2 General: Chief complaint: Vaginal Bleeding Stated complaint: abnormal vag bleeding Time Seen by Provider: 01/29/25 08:01 History of Present Illness: 29-year-old female presents emergency ro om complaining of heavy vaginal bleeding patient recently started a new control she began to have a period of bleeding heavily has right-sided pelvic pain as well. No fever sweats or chills no dysuria urgency or frequency. Associated symptoms: Deny chest pain, dyspnea or rash Related Data Home Medications ?Medication ?Instructions ?Recorded ?Confirmed ibuprofen 200 mg tablet (Advil) 400 mg PO Q6H PRN Feve r Or Pain 01/29/25 01/29/25 norgestimate 0.25 mg-ethinyl 1 tab PO DAILY 01/29/25 0 01/29/25 estradiol 35 mcg tablet (Estarylla) Previous Rx's ?Medication ?Instructions ?Recorded medroxyprogesterone 10 mg tablet 20 mg (2 x 10 mg) PO DAILY 7 days 01/29/25 #14 tabs promethazine 25 mg tablet 25 mg PO Q6H PRN nausea and 01/29/25 vomiting #20 tabs Allergies Allergy/AdvReac Type Severity Reaction Status Date / Time No Known Allergies Allergy Verified 01/17/25 08:38 Review of Systems 2 Const: Denies: fever(s) or chills Card: Denies: chest pain Resp: Denies: dyspnea GI: Denies: abdominal pain : Reports: vaginal bleeding and pelvic pain; Denies: dysuria, urinary frequency or urinary urgency Musc: Denies: neck pain or back pain Skin/Breast: Denies: rash PFSH ED 2 PFSH: Medical History History of strep pharyngitis Surgical History History of ankle surgery Family History Father Heart disease Denies family history of Colon cancer Ovarian cancer Diabetes Hypercholesteremia Breast cancer Hypertension Uterine cancer Thyroid disease Stroke Social History Smoking and tobacco/nicotine status: never used tobacco/nicotine Substance/Drug Use: never Physical Exam 2 Const: GENERAL APPEARANCE: cooperative ORIENTATION/CONSCIOUSNESS: Yes awake, Yes oriented to person, Yes oriented to place and Yes oriented to time HENMT: COMMON NORMALS: normocephalic, atraumatic and hearing grossly normal bilaterally HEAD & SCALP: normocephalic and atraumatic Resp: COMMON NORMALS: normal respiratory effort, No retractions, No use of accessory muscles and clear to auscultation bilaterally AUSCULTATION: clear to auscultation bilaterally Cardio: COMMON NORMALS: regular rate, regular rhythm and No murmurs present (Cardio) RATE: regular rate RHYTHM: regular rhythm GI: COMMON NORMALS: Soft to palpation and No hepatosplenomegaly present A USCULTATION: Yes normoactive bowel sounds PALPATION: Yes Soft to palpation, No Tenderness to palpation present (GI), No Guarding due to palpation present (GI) and Yes No hepatosplenomegaly present : OTHER: Pelvic exam done with nurse present. Patient placed in dorsolithotomy position speculum introduced cervix visualized there is some mucousy bleeding no active bleeding at this time no trauma. Cultures done. Extremity: COMMON NORMALS: normal to inspection, capillary refill normal, no clubbing, cyanosis or edema, no calf tenderness and no pedal edema Neuro: SENSORIUM/ORIENTATION: Yes oriented to person, Yes oriented to place and Yes oriented to time Skin: COMMON NORMALS: no rashes or lesions noted GENERAL SKIN EXAM: no rashes or lesions noted Course 2 Vital Signs: Vital signs: Vital Signs Temperature 98.2 F 01/29/25 08:09 Pulse Rate 64 01/29/25 12:25 Respiratory Rate 16 01/29/25 08:09 Blood Pressure 163/100 01/29/25 12:25 Pulse Oximetry 99 01/29/25 12:25 Oxygen Delivery Me thod Room Air 01/29/25 10:58 MDM - General Adult Medical Decision Making Ultrasound did not identify the right ovary discussed Dr. Reeves she recommends pelvic CT with contrast. We were able to identify the ovary she feels it is normal at this time no further imaging required. Will discharge patient home put her on medroxyprogesterone 20 mg daily for the next 7 days. Gave promethazine to use as needed. Follow-up with her consumer science teacher soon as she is able. Discussed with the patient that when she completes the course of Medrol medroxyprogesterone she will have a withdrawal bleed which will likely be quite heavy. Medical Records I reviewed the patient's medical records. Lab Data I reviewed the patient's lab results. 01/29/25 08:25 01/29/25 08:25 Radiology Impressions Pelvic/Transvag US 01/29/25 08:14 IMPRESSION: 1. RIGHT ovary is not identified. 2. Large amount of shadowing from GI tract content within the pelvis. 3. Normal endometrium. 4. Unremarkable LEFT ovary. Pelvis CT 01/29/25 10:44 IMPRESSION: No acute pelvic findings. Tiny fat-containing umbilical hernia. Laboratory Results WBC 10.97 10^3/uL (3.29-11.43) 01/29/25 08: RBC 4.80 10^6/uL (3.85-5.65) 01/29/25 08:25 Hgb 13.20 g/dL (11.27-16.99) 01/29/25 08:25 Hct 41.0 % (36-47) 01/29/25 08:25 MCV 85.4 fl (85-98) 01/29/25 08:25 MCH 27.5 pg (27-33) 01/29/25 08: MCHC 32.2 g/dL (30-55) 01/29/25 08:25 RDW 13.6 % (12.1-15.1) 01/29/25 08:25 Plt Count 323 10^3/cmm (157-399) 01/29/25 08:25 MPV 9.3 fL (7.4-10.4) 01/29/25 08:25 Neut % (Auto) 70.1 % 01/29/25 08:25 Lymph % (Auto) 21.1 % 01/29/25 08:25 [place] % (Auto) 6.6 % 01/29/25 08:25 Eos % (Auto) 1.3 % 01/29/25 08:25 Baso % (Auto) 0.5 % 01/29/25 08:25 Neut # (Auto) 7.70 10^3/uL (1.8-7.7) 01/29/25 08:25 Lymph # (Auto) 2.3 10^3/uL (0.8-4.8) 05/05/25 08:25 [place] # (Auto) 0.7 10^3/uL (0.2-0.9) 01/29/25 08:25 Eos # (Auto) 0.1 10^3/uL (0.0-0.8) 01/29/25 08:25 Baso # (Auto) 0.1 10^3/uL (0.0-0.1) 01/29/25 08:25 Nucleated RBC % (auto) 0 % 01/29/25 08:25 Nucleated RBCs # 0.0 /100WBC 01/29/25 08:25 Sodium 140 mmol/L (136-145) 01/29/25 08:25 Potassium 4.2 mmol/L (3.5-5.1) 01/29/25 08:25 Chloride 104 mmol/L (98-107) 01/29/25 08:25 Carbon Dioxide 23 mmol/L (22-29) 01/29/25 08:25 Anion Gap 17.2 (5-19) 01/29/25 08:25 BUN 13 mg/dL (6-20) 01/29/25 08:25 Creatinine 0.6 mg/dL (0.5-0.9) 01/29/25 08:25 GFR Calculation 119.0 mL/min (90-130) 01/29/25 08:25 Glucose 92 mg/dL (65-115) 01/29/25 08:25 Calculated Osmolality 290 mOsm/kg (285-295) 01/29/25 08:25 Calcium 9.1 mg/dL (8.5-10.5) 01/29/25 08:25 Total Bilirubin 0.5 mg/dL (0.15-1.2) 01/29/25 08:25 AST 11 U/L (0-32) 01/29/25 08:25 ALT 13 U/L (0-33) 01/29/25 08:25 Alkaline Phosphatase 90 U/L (35-105) 01/29/25 08:25 Total Protein 7.7 g/dL (6.6-8.7) 01/29/25 08:25 Albumin 3.9 g/dL (3.5-5.2) 01/29/25 08:25 Globulin 3.8 g/dL (1.3-4.6) 01/29/25 08:25 HCG, Qual Negative (Negative) 01/29/25 08:25 Urine Color Yellow (Yellow) 01/29/25 10:55 Urine Appearance Slightly cloudy (CLEAR) 01/29/25 10:55 Urine pH 5 (5-7) 01/29/25 10:55 Ur Specific [place] 1.015 (1.005-1.030) 01/29/25 10:55 Urine Protein Neg (Negative) 01/29/25 10:55 Urine Glucose (UA) Norm (Normal) 01/29/25 10:55 Urine Ketones Negative (Negative) 01/29/25 10:55 Urine Blood 2+ (Negative) H 01/29/25 10:55 Urine Nitrate Negative (Negative) 01/29/25 10:55 Urine Bilirubin Neg (Negative) 01/29/25 10:55 Urine Urobilinogen Norm mg/dL (Negative) 01/29/25 10:55 Ur Leukocyte Esterase Negative (Negative) 01/29/25 10:55 Urine RBC 0-4 /hpf (0-2) H 01/29/25 10:55 Urine WBC 0-4 /hpf (0-5) H 01/29/25 10:55 Ur Squamous Epith Cells 5-10 /hpf (0-5) H 01/29/25 10:55 Amorphous Sediment Not Reportable 01/29/25 10:55 Urine Bacteria Trace /hpf (NONE) 01/29/25 10:55 Urine Mucus 1+ /hpf 01/29/25 10:55 C. trachomatis (PCR) Not detected 01/29/25 10:20 N. gonorrhoeae (PCR) Not detected 01/29/25 10:20 T. vaginalis (PCR) Not detected 01/29/25 10:20 All radiology interpretation(s) finalized by discharge Discharge Plan Discharge Patient Disposition: Home Clinical Impression: Menometrorrhagia Condition: Stable Prescriptions: New medroxyprogesterone 10 mg tablet 20 mg PO DAILY 7 Days Qty: 14 0RF Rx Instructions: begin day 19 of cycle promethazine 25 mg tablet 25 mg PO Q6H PRN (Reason: nausea and vomiting) Qty: 20 0RF No Action norgestimate-ethinyl estradiol [Estarylla] 0.25-35 mg-mcg tablet 1 tab PO DAILY ibuprofen [Advil] 200 mg Tablet 400 mg PO Q6H PRN (Reason: Fever Or Pain) Discharge Orders: Discharge ED (Routine); Ordered 01/29/25 Ordered By: Nathanael Bhatt Referrals: Sofia Frazier, [facility] [Primary Care Provider, Nurse Practitioner Acute Care] Patient Instructions: Opioid Safety, Pain Management Activity Restrictions/Additional Instructions: [facility] your healthcare needs today. It is very important that you follow up as instructed or that you return to the Emergency Department should you have concerns or if your condition changes or worsens in any way. You are seen in the emergency room with heavy vaginal bleeding. Pelvic exam is unremarkable ultrasound we are not able to visualize the right ovary so a CT was done. I discussed the CT with the radiologist the right ovary was visualized and appears normal. Suspect your heavy bleeding is due to withdrawal from the contraceptive pills recommend you medroxyprogesterone 20 mg daily for 7 days at the end of that time you will have a heavy period. It is often the case with medroxyprogesterone it will make you sick your stomach we gave you promethazine to use for that. Follow up with your gynocolgist. Print Language: Argentine Coding Level of Care Code ED Check Out Clerk for Ana Zamora
[2025-01-29 08:09] VITALS: BP 167/103; PULSE 76; RESP 16; TEMP 36.8; O2SAT 99
--- NOTE | 2025-01-29 08:14 | US_ITS ---
WS: [id number] US pelv w/transvag [id number] HISTORY: R pelvic pain COMPARISON: 04/21/2022 Uterus: 8.2 cm x 5.0 cm x 4.0 cm. Normal size anteverted uterus. No fibroid or mass. Endometrium: 0.7 cm. Normal. Right ovary: RIGHT ovary is not identified. There is a large amount of shadowing from GI tract content in the pelvis. No right-sided pelvic mass is identified. Left ovary: 2.5 cm x 1.5 cm x 2.7 cm. Normal size and vascularity, no cystic or solid masses. Several small follicles in the ovary. There is a collapsing corpus luteum also. No free fluid in the cul-de-sac. US/US pelv w/transvag [id number] IMPRESSION: 1. RIGHT ovary is not identified. 2. Large amount of shadowing from GI tract content within the pelvis. 3. Normal endometrium. 4. Unremarkable LEFT ovary.
[2025-01-29 08:33] LABS: Basophils # 0.1 10^3/uL (0.0-0.1); Basophils % 0.5 %; Eosinophils # 0.1 10^3/uL (0.0-0.8); Eosinophils % 1.3 %; Lymphocytes # 2.3 10^3/uL (0.8-4.8); Lymphocytes % 21.1 %; Mean Corpuscular HGB Conc 32.2 g/dL (30-55); Mean Corpuscular Hemoglobin 27.5 pg (27-33); Mean Corpuscular Volume 85.4 fl (85-98); Mean Platelet Volume 9.3 fL (7.4-10.4); Monocytes # 0.7 10^3/uL (0.2-0.9); Monocytes % 6.6 %; Neutrophils % 70.1 %; Nucleated Red Blood Cells % 0 %; Platelet Count 323 10^3/cmm (157-399); Red Cell Distribution Width 13.6 % (12.1-15.1); White Blood Count 10.97 10^3/uL (3.29-11.43)
[2025-01-29 08:47] LABS: HCG, Serum Qual Negative (Negative)
[2025-01-29 08:51] LABS: Alanine Aminotransferase 13 U/L (0-33); Albumin Level 3.9 g/dL (3.5-5.2); Alkaline Phosphatase 90 U/L (35-105); Anion Gap 17.2 (5-19); Aspartate Amino Transferase 11 U/L (0-32); Blood Urea Nitrogen 13 mg/dL (6-20); Calcium 9.1 mg/dL (8.5-10.5); Carbon Dioxide 23 mmol/L (22-29); Chloride 104 mmol/L (98-107); Creatinine Clr Calc Pharmacy 190.8337; Globulin 3.8 g/dL (1.3-4.6); Glucose 92 mg/dL (65-115); Osmolality Calculated 290 mOsm/kg (285-295); Potassium 4.2 mmol/L (3.5-5.1); Sodium 140 mmol/L (136-145); Total Bilirubin 0.5 mg/dL (0.15-1.2); Total Protein 7.7 g/dL (6.6-8.7)
[2025-01-29 09:08] VITALS: O2SAT 98
[2025-01-29 09:31] VITALS: BP 169/101
--- NOTE | 2025-01-29 10:44 | CT_ITS ---
WS: [id number] CT pelvis TECHNIQUE: Contrast-enhanced CT of the pelvis with coronal and sagittal reformatted images. CLINICAL INFORMATION: Cannot see right ovary COMPARISON: Ultrasound earlier today DLP: 897.[address] scans at [facility] use at least one of these dose optimization techniques: automated exposure control; mA and/or kV adjustment per patient size (includes targeted exams where dose is matched to clinical indication); or iterative reconstruction. FINDINGS: Anteverted uterus. No free fluid in the abdomen or pelvis. No free fluid in the cul-de-sac. Endometrium appears normal. Multi follicular ovaries bilaterally. Ovaries are otherwise normal in appearance. RIGHT ovary appears normal. Normal bladder. No inguinal lymphadenopathy. Normal sigmoid colon. No other acute findings. CT/CT pelvis w con* [id number] IMPRESSION: No acute pelvic findings. Tiny fat-containing umbilical hernia.
[2025-01-29 10:58] VITALS: BP 143/103; O2SAT 96
[2025-01-29 11:22] LABS: Glucose Urine UA Norm (Normal); Protein Urine Neg (Negative); Specific Gravity, Urine 1.015 (1.005-1.030); Urine Appearance Slightly Cloudy (CLEAR); Urine Color Yellow (Yellow); pH Urine 5 (5-7)
[2025-01-29 11:23] LABS: Add Urine Microscopic? YES; Bilirubin Urine Neg (Negative); Blood Urine 2+ (Negative); Ketones Urine Negative (Negative); Leukocyte Esterase Urine Negative (Negative); Nitrate Urine Negative (Negative); RBC Urine 0-4 /hpf (0-2); Urobilinogen Urine Norm (Negative)
[2025-01-29 11:24] LABS: WBC Urine 0-4 /hpf (0-5)
[2025-01-29 11:25] LABS: Add Urine Culture? No; Bacteria Urine TRACE /hpf; Mucus Urine 1+ /hpf
[2025-01-29] MEDS: iohexol 350 mg/mL 500 mL Btl (per mL) IV (11:27)
[2025-01-29] MEDS: HYDROcodone-acetaminophen 5-325 mg Tablet 1 TAB PO (11:30)
[2025-01-29 12:05] LABS: Trichomonas vaginalis (PCR) NOT DETECTED
[2025-01-29 12:25] VITALS: BP 163/100; PULSE 64; O2SAT 99
[2025-01-29 12:28] LABS: Chlamydia Trachomatis NOT DETECTED; Neisseria Gonorrhea NOT DETECTED
== END 2025-01-29 12:26 | disposition home or self-care (01) ==
PROVIDERS: Emergency Provider Family Medicine; PCP Clinical Nurse Specialist Acute Care
DX: N92.1 Excessive and frequent menstruation with irregular cycle (principal)
CPT/HCPCS: 36415; 72193; 76830; 76856; 80053; 81001; 84703; 85025; 87210; 87491; 87591; 87661; 99285; J9999